=== PATIENT | female | born 1955 | race American Indian/Alaskan Native ===

== ENCOUNTER 2017-11-21 09:10 | Emergency (ER) | payer OTHER ==
[~2017-11-21] VITALS: Ht 157.5 cm; Wt 63.0 kg
[~2017-11-21 09:10] MED LIST: LOZOL2.5 MG PO
[2017-11-21] MEDS ORDERED: COZAAR100 MG (09:23)
[2017-11-21] MEDS ORDERED: METFORMIN HCL500 MG (09:23)
[2017-11-21] MEDS ORDERED: ATORVASTATIN CA20 MG (09:24)
== END 2017-11-21 13:44 | disposition home or self-care (01) ==
LOC: ER 09:10
DX: R21 Rash and other nonspecific skin eruption (principal); T78.49XA Other allergy, initial encounter

== ENCOUNTER 2020-02-14 09:56 | Emergency (ER) | payer OTHER ==
[~2020-02-14] VITALS: Ht 157.5 cm; Wt 61.2 kg
[~2020-02-14 09:56] MED LIST changes: +ATORVASTATIN CA20 MG; +COZAAR100 MG; +METFORMIN HCL500 MG
[2020-02-14] MEDS ORDERED: AVAPRO75 MG (10:19)
[2020-02-14] MEDS ORDERED: MECLIZINE HCL25 MG PO (16:03)
== END 2020-02-14 17:00 | disposition home or self-care (01) ==
LOC: ER 09:56
DX: R42 Dizziness and giddiness (principal); R11.0 Nausea; Z03.818 Encounter for observation for suspected exposure to other biological agents ruled out

== ENCOUNTER 2025-06-15 09:22 | Emergency (ER) | payer OTHER ==
[~2025-06-15] VITALS: Ht 157.5 cm; Wt 59.0 kg
[~2025-06-15 09:22] MED LIST changes: +AVAPRO75 MG; +MECLIZINE HCL25 MG PO
[2025-06-15] MEDS ORDERED: ANASTROZOLE1 MG (09:35)
[2025-06-15] MEDS ORDERED: TRAMADOL HCL 50 MG TABLET PO ONE (10:00)
== END 2025-06-15 11:24 | disposition home or self-care (01) ==
LOC: ER 09:23
DX: R46.89 Other symptoms and signs involving appearance and behavior (principal); R51.9 Headache, unspecified; I10 Essential (primary) hypertension; E11.9 Type 2 diabetes mellitus without complications; Z79.84 Long term (current) use of oral hypoglycemic drugs